=== PATIENT | female | born 1975 | race Caucasian/White ===

== ENCOUNTER → 2017-12-29 | Outpatient (CLI) | payer BC, OTHER ==
[~2017-12-29] MED LIST: BIRTH CONTROL PILL PO; IBU800 PO; MULT1CAP41 PO; PER PO
--- NOTE | 2018-01-02 15:58 | RADIOLOGY IMAGING REPORT ---
FACILITY: [facility] - [place], [place] PATIENT NAME: ZARIA NERY : [id number] MR: [id number] V: [id number] EXAM DATE: ORDERING PHYSICIAN: JORGE DEL ROSARIO TECHNOLOGIST: Rosalie Lopez PROCEDURE:BILATERAL DIGITAL SCREENING MAMMOGRAM WITH CAD ASSISTED INTERPRETATION & 3D TOMOSYNTHESIS MLO 2D. COMPARISON:None. TECHNIQUE:Routine CC & MLO 2D & 3D tomographic images of both breasts was performed. INDICATIONS:screening FINDINGS: The breast tissue demonstrates scattered fibroglandular densities. In the Right breast approximately 8-9 o'clock position there is a 6mm partially obscured nodule seen on the CC view which appears to lateralize to the 8 or 9 o'clock position on the MLO view but is not well seen on the MLO view. This nodule is 7cm from the nipple. Recommend a targeted Ultrasound for further evaluation. In The Left breast 7 o'clock position, 7cm from the nipple, there is a 9mm circumscribed mass which also warrants additional evaluation. No concerning calcifications in either breast. DIAGNOSTIC CATEGORY 0--INCOMPLETE: NEED ADDITIONAL IMAGING EVALUATION. RECOMMENDATIONS: ADDITIONAL MAMMOGRAPHIC VIEWS REQUIRED: RIGHT BREAST. ULTRASOUND: BILATERAL BREASTS. IMPRESSION: BIRADS 0: Incomplete. 1. Recommend additional imaging of both breasts. I would suggest a Spot compression Right CC and MLO and a Right full ML. I would suggest a bilateral breast Ultrasound for evaluation of the masses described above. Dictated by: Zacakry Lomas M.D. on 01/02/2018 at 9:14 Transcribed by: DANIEL on 01/02/2018 at 15:56 Approved by: Zackary Lomas M.D. on 01/02/2018 at 15:57 [facility]
== END ==
LOC: MAMO 03:33
PROVIDERS: ATTEND Physician Assistant
DX: Z12.31 Encounter for screening mammogram for malignant neoplasm of breast (principal); N63.13 Unspecified lump in the right breast, lower outer quadrant; N63.24 Unspecified lump in the left breast, lower inner quadrant
CPT/HCPCS: 77063; 77067